=== PATIENT | female | born 1990 | race Caucasian/White ===

== ENCOUNTER 2017-02-27 20:07 | Emergency (ER) | payer SELFPAY ==
[~2017-02-27] VITALS: Ht 154.9 cm; Wt 58.0 kg
[~2017-02-27 20:07] MED LIST: PRENATAL VIT; [UNRECOGNIZED DRUG - REMARK]
[2017-02-27 20:57] VITALS: Ht 154.9 cm; Wt 58.0 kg
== END 2017-02-27 21:24 | disposition left against medical advice (07) ==
LOC: FTE 20:07
DX: Z53.21 Procedure and treatment not carried out due to patient leaving prior to being seen by health care provider (principal)